=== PATIENT | male | born 1960 | race Caucasian/White ===

== ENCOUNTER 2017-06-14 21:46 | Emergency (ER) | payer OTHER ==
[~2017-06-14] VITALS: Ht 165.1 cm; Wt 81.2 kg
[2017-06-14 21:50] VITALS: BP_SYST 128
[2017-06-14 22:50] VITALS: BP_SYST 116
== END 2017-06-14 22:50 | disposition home or self-care (01) ==
LOC: SED 21:46
DX: R33.9 Retention of urine, unspecified (principal)
CPT/HCPCS: 99284